=== PATIENT | female | born 1970 | race Caucasian/White ===

== ENCOUNTER 2019-03-03 01:36 | Emergency (ER) | payer MEDICAID ==
[2019-03-03 01:50] VITALS: BP_SYST 149
--- NOTE | 2019-03-03 02:10 | NUR ---
Patient left without being seen. No further treatment provided. ER MD aware
--- NOTE | 2019-03-03 02:10 | NUR ---
Called in to triage, no answer
== END 2019-03-03 02:10 | disposition left against medical advice (07) ==
LOC: SED 01:36
DX: R10.9 Unspecified abdominal pain (principal); Z53.21 Procedure and treatment not carried out due to patient leaving prior to being seen by health care provider